=== PATIENT | male | born 1970 | race Two or more races ===

== ENCOUNTER 2022-07-23 00:14 | Emergency (ER) | payer OTHER ==
[~2022-07-23] VITALS: Ht 182.9 cm; Wt 140.6 kg
[2022-07-23] MEDS ORDERED: NIFEDIPINE ER30 M1 PO (03:50)
[2022-07-23] MEDS ORDERED: NORFLEX100MG PO (03:50)
[2022-07-23] MEDS ORDERED: KETO10TA2 PO (03:50)
== END 2022-07-23 03:55 ==
LOC: ER 00:14
DX: M54.50 Low back pain, unspecified (principal); I10 Essential (primary) hypertension

== ENCOUNTER 2023-12-26 09:47 | Emergency (ER) | payer OTHER ==
[~2023-12-26] VITALS: Ht 182.9 cm; Wt 145.1 kg
[~2023-12-26 09:47] MED LIST: KETO10TA2 PO; NIFEDIPINE ER30 M1 PO; NORFLEX100MG PO
[2023-12-26] MEDS ORDERED: GLUMETZA1000 MG (10:12)
[2023-12-26] MEDS ORDERED: COZAAR25 MG (10:12)
[2023-12-26 10:49] LABS: HEMATOCRIT 46.3 % (39.0-48.0); HEMOGLOBIN 16.2 g/dL (13-16.00); MEAN CELL VOLUME 91.1 fL (80.0-100.00); MEAN CORPUSCULAR HEMOGLOBIN 31.8 pg (27.00-32.0); PLATELET COUNT 319 K/uL (150-450); RED BLOOD COUNT 5.09 M/uL (4.00-6.00); RED CELL DISTRIBUTION WIDTH 13.1 % (11.5-14.5)
[2023-12-26 11:16] LABS: ALBUMIN 3.8 gm/dL (3.4-5.0); BILIRUBIN TOTAL 0.69 mg/dL (0.3-1.2); CALCIUM 9.7 mg/dL (8.5-10.1); CREATININE SERUM 0.71 mg/dL (0.70-1.30); GFR 116.96; GLOBULINA 4.1 G/DL (2.4-3.5); POTASSIUM 4.3 mEq/L (3.5-5.1); TOTAL PROTEIN 7.9 gm/dL (6.4-8.2)
[2023-12-26] MEDS ORDERED: 0.9 % SODIUM CHLORIDE 1,000 ML IV SCH (12:00)
[2023-12-26 12:12] LABS: PH,URINE 5.5 (5.0-8.0); URINE APPEARANCE Clear; URINE BILIRRUBIN Negative (NEGATIVE); URINE BLOOD Negative; URINE COLOR Yellow; URINE KETONE Trace (NEGATIVE); URINE LEUKOCYTE Negative; URINE NITRATE Negative; URINE PROTEIN Negative (NEGATIVE); URINE UROBILINOGEN 0.2 E.U./dl
[2023-12-26 12:13] LABS: URINE BACTERIA 49.1 uL (0.0-1933); URINE EPITHELIAL CELLS 23.9 uL (0.0-38.8); URINE RBC 4.1 uL (0.0-20.8); URINE WBC 6.6 uL (0.0-23.2)
[2023-12-26 12:14] LABS: URINE GLUCOSE >=1000 MG/DL (NEGATIVE)
[2023-12-26 12:15] LABS: URINE CAST 0.15 uL (0.0-1.40)
== END 2023-12-27 07:29 | disposition designated cancer center or children's hospital (05) ==
LOC: ER 09:47
PROVIDERS: Emergency Medicine
DX: R10.9 Unspecified abdominal pain (principal); I10 Essential (primary) hypertension; E11.9 Type 2 diabetes mellitus without complications; Z79.84 Long term (current) use of oral hypoglycemic drugs; M48.061 Spinal stenosis, lumbar region without neurogenic claudication; K76.0 Fatty (change of) liver, not elsewhere classified